=== PATIENT | female | born 1965 | race African-American/Black ===

== ENCOUNTER → 2018-07-13 | Outpatient (CLI) | payer OTHER | LOC: RAD 14:55 | DX: Z12.31 Encounter for screening mammogram for malignant neoplasm of breast (principal) ==

== ENCOUNTER → 2019-07-19 | Outpatient (CLI) | payer OTHER | LOC: RAD 14:04 | DX: Z12.31 Encounter for screening mammogram for malignant neoplasm of breast (principal) ==

== ENCOUNTER → 2021-08-16 | Outpatient (CLI) | payer BC | LOC: RAD 14:48 | PROVIDERS: ATTEND Family Medicine | DX: Z12.31 Encounter for screening mammogram for malignant neoplasm of breast (principal); N64.89 Other specified disorders of breast ==